=== PATIENT | female | born 2000 | race Caucasian/White ===

== ENCOUNTER → 2021-04-11 | Outpatient (REF) | payer SELFPAY | LOC: M WUC 17:00 | PROVIDERS: ATTEND Physician Assistant Medical | DX: J02.9 Acute pharyngitis, unspecified (principal) ==

== ENCOUNTER → 2022-08-23 | Outpatient (REF) | payer SELFPAY ==
[2022-08-23 17:07] LABS: HEMATOCRIT 40.1 % (36.0-47.0); HEMOGLOBIN 13.3 g/dl (12.0-15.5); MEAN CORPUSCULAR HEMOGLOBIN 29.5 pg (27.0-33.0); MEAN CORPUSCULAR HGB CONC 33.2 g/dl (32.0-36.5); MEAN CORPUSCULAR VOLUME 88.9 fl (80.0-96.0); PLATELET COUNT, AUTOMATED 257 10^3/uL (150-450); RED BLOOD COUNT 4.51 10^6/uL (4.00-5.40); WHITE BLOOD COUNT 5.7 10^3/uL (4.0-10.0)
[2022-08-23 17:31] LABS: PERCENT SATURATION 10.4 % (13.2-45.0)
[2022-08-23 17:33] LABS: THYROID STIMULATING HORMONE 2.342 uIU/ML (0.55-4.78)
[2022-08-23 17:34] LABS: FERRITIN 23.2 NG/ML (7.3-270.7)
== END ==
LOC: M LAB REF 16:35
PROVIDERS: ATTEND Nurse Practitioner Family
DX: L65.9 Nonscarring hair loss, unspecified (principal)

== ENCOUNTER → 2022-11-08 | Outpatient (CLI) | payer SELFPAY ==
[2022-11-08 13:45] LABS: FOLLICLE STIMULATING HORMONE 8.7 mIU/ML; FREE T4 0.95 NG/DL (0.89-1.76); LUTEINIZING HORMONE 2.3 mIU/ML
[2022-11-08 13:46] LABS: ESTRADIOL 34.6 PG/ML; PROLACTIN 4.22 NG/ML
[2022-11-11 19:07] LABS: 17 HYDROXY PROGESTERONE 21 ng/dL (.); TESTOSTERONE FREE (DIRECT) 0.7 pg/mL (0.0-4.2)
== END ==
LOC: M PLALAB 11:03
PROVIDERS: ATTEND Nurse Practitioner Family
DX: N92.6 Irregular menstruation, unspecified (principal)